=== PATIENT | female | born 1940 | race African-American/Black ===

== ENCOUNTER 2017-10-19 09:58 | Inpatient (IN) | payer MEDICARE, MEDICAID ==
[~2017-10-19] VITALS: Ht 160 cm; Wt 70.8 kg
[~2017-10-19 09:58] MED LIST: ASPI-1159 PO; CARV3.1242 PO; FAMO20TA8 PO; FERR-63 PO; FOLI-43 PO; FURO20TA4 PO; LEVE500T19 PO; LISI2.5T47 PO; MAGN400C PO; MULT-1146 PO
[2017-10-19] MEDS ORDERED: METHYLPREDNISOLONE SOD SUCC 125 MG/2 ML VIAL IV STA (10:35)
[2017-10-19] MEDS ORDERED: IPRATROPIUM BROMIDE (0.02%) 0.5MG/2.5ML NEB HHN STA (10:35)
[2017-10-19] MEDS ORDERED: ALBUTEROL (0.083%) 2.5MG/3ML NEB HHN STA (10:35)
[2017-10-19] MEDS ORDERED: CLOPIDOGREL 75MG TABLET PO ONE (10:45)
[2017-10-19] MEDS ORDERED: DILTIAZEM HCL 5MG/ML 5ML VIAL IV ONE (10:45)
[2017-10-19 11:31] LABS: INR 1.1; PARTIAL THROMBOPLASTIN TIME 23.8 sec (23.4-31.0); PROTHROMBIN TIME 11.4 sec (9.4-11.6)
[2017-10-19 11:33] LABS: HEMATOCRIT. 34.9 % (36.0-48.0); HEMOGLOBIN. 11.2 g/dL (12.0-16.0); MEAN CORPUSCULAR HEMOGLOBIN 30.1 pg (28.0-32.0); MEAN CORPUSCULAR VOLUME 93.9 fL (81.0-99.0); MEAN PLATELET VOLUME 7.6 fl (7.4-10.4); PLATELET 197 x1000/uL (130-400); RED BLOOD CELL COUNT 3.71 mill/uL (4.2-5.4); RED CELL DISTRIBUTION WIDTH 14.2 % (11.6-14.6)
[2017-10-19 11:39] LABS: CARBON DIOXIDE 25 mEq/L (21-32); CHLORIDE 111 mEq/L (98-107); TROPONIN I 0.02 ng/mL (0.00-0.04)
[2017-10-19 12:17] LABS: PLATELET ESTIMATE NORMAL
[2017-10-19] MEDS ORDERED: FUROSEMIDE 40MG/4ML VIAL IVP ONE (12:45)
[2017-10-19] MEDS ORDERED: NITROGLYCERIN 0.4MG TABLET SL SL PRN (15:00)
[2017-10-19] MEDS ORDERED: ACETAMINOPHEN 500MG TABLET PO PRN (15:00)
[2017-10-19 17:59] VITALS: BP 140/85
[2017-10-19 20:00] VITALS: BP 130/81
[2017-10-19] MEDS: LEVETIRACETAM 500MG TABLET PO SCH (20:33)
[2017-10-19] MEDS: CARVEDILOL 3.125 MG TABLET PO SCH (20:34)
[2017-10-19] MEDS: FAMOTIDINE 20MG TABLET PO SCH (20:34)
[2017-10-20] VITALS (8 sets, daily range): BP systolic 94–170; BP diastolic 52–110
[2017-10-20 07:05] LABS: HEMATOCRIT. 32.2 % (36.0-48.0); HEMOGLOBIN. 10.5 g/dL (12.0-16.0); MEAN CORPUSCULAR HEMOGLOBIN 30.5 pg (28.0-32.0); MEAN CORPUSCULAR VOLUME 92.9 fL (81.0-99.0); MEAN PLATELET VOLUME 7.8 fl (7.4-10.4); PLATELET 172 x1000/uL (130-400); RED BLOOD CELL COUNT 3.46 mill/uL (4.2-5.4); RED CELL DISTRIBUTION WIDTH 14.1 % (11.6-14.6)
[2017-10-20] MEDS: CARVEDILOL 3.125 MG TABLET PO SCH (08:44)
[2017-10-20] MEDS: LEVETIRACETAM 500MG TABLET PO SCH ×2 (08:45→22:21)
[2017-10-20] MEDS: FUROSEMIDE 40MG/4ML VIAL IVP SCH (08:45)
[2017-10-20] MEDS ORDERED: LISINOPRIL 2.5MG TABLET PO SCH (09:00)
[2017-10-20] MEDS ORDERED: ASPIRIN 325MG EC TABLET PO SCH (09:00)
[2017-10-20] MEDS ORDERED: CLOPIDOGREL 75MG TABLET PO SCH (09:00)
[2017-10-20 10:15] LABS: PLATELET ESTIMATE NORMAL
[2017-10-20] MEDS: SILDENAFIL CITRATE 20MG TABLET PO SCH ×2 (18:34→22:00)
[2017-10-20] MEDS: DIGOXIN 125MCG TABLET PO SCH (18:34)
[2017-10-20] MEDS: CARVEDILOL 6.25 MG TABLET PO SCH (21:00)
[2017-10-20] MEDS: FAMOTIDINE 20MG TABLET PO SCH (22:21)
[2017-10-21] VITALS: BP 101/69
[2017-10-21 04:00] VITALS: BP 111/59
[2017-10-21] MEDS: SILDENAFIL CITRATE 20MG TABLET PO SCH ×3 (05:57→22:11)
[2017-10-21 07:12] LABS: BASOPHILS % 0.1 % (0.0-2.0); EOSINOPHILS % 0.9 % (0.0-5.0); HEMATOCRIT. 30.8 % (36.0-48.0); MEAN CORPUSCULAR VOLUME 92.1 fL (81.0-99.0); MEAN PLATELET VOLUME 7.8 fl (7.4-10.4); MONOCYTES % 6.9 % (2.0-8.0); NEUTROPHILS % 84.1 % (40.0-76.0); PLATELET 163 x1000/uL (130-400); RED BLOOD CELL COUNT 3.34 mill/uL (4.2-5.4)
[2017-10-21 08:00] VITALS: BP 132/69
[2017-10-21] MEDS: CARVEDILOL 6.25 MG TABLET PO SCH ×2 (09:00→22:11)
[2017-10-21] MEDS: FUROSEMIDE 40MG/4ML VIAL IVP SCH ×2 (09:00→09:16)
[2017-10-21] MEDS: LEVETIRACETAM 500MG TABLET PO SCH ×2 (09:16→22:10)
[2017-10-21 12:00] VITALS: BP 147/85
[2017-10-21] MEDS ORDERED: SODIUM BICARBONATE 4% (2.4MEQ) 5ML VIAL IV ONE (13:52)
[2017-10-21] MEDS ORDERED: LIDOCAINE HCL 1% 20ML VIAL (Pyxis) INJ ONE (13:52)
[2017-10-21 16:00] VITALS: BP 123/62
[2017-10-21] MEDS: DIGOXIN 125MCG TABLET PO SCH (17:43)
[2017-10-21 20:00] VITALS: BP 130/72
[2017-10-21] MEDS: FAMOTIDINE 20MG TABLET PO SCH (22:10)
[2017-10-22] VITALS: BP 147/74
[2017-10-22 04:00] VITALS: BP 105/78
[2017-10-22] MEDS: SILDENAFIL CITRATE 20MG TABLET PO SCH ×2 (05:55→14:17)
[2017-10-22 07:17] LABS: BASOPHILS % 0.3 % (0.0-2.0); EOSINOPHILS % 1.2 % (0.0-5.0); HEMOGLOBIN. 10.3 g/dL (12.0-16.0); LYMPHOCYTES % 12.5 % (20.0-50.0); MEAN CORPUSCULAR HEMOGLOBIN 30.1 pg (28.0-32.0); MEAN PLATELET VOLUME 7.6 fl (7.4-10.4); MONOCYTES % 6.3 % (2.0-8.0); NEUTROPHILS % 79.7 % (40.0-76.0); PLATELET 175 x1000/uL (130-400); RED BLOOD CELL COUNT 3.44 mill/uL (4.2-5.4); RED CELL DISTRIBUTION WIDTH 14.4 % (11.6-14.6)
[2017-10-22 08:00] VITALS: BP 149/95
[2017-10-22 08:56] LABS: TROPONIN I 0.03 ng/mL (0.00-0.04)
[2017-10-22] MEDS: LEVETIRACETAM 500MG TABLET PO SCH (09:33)
[2017-10-22] MEDS: FUROSEMIDE 40MG/4ML VIAL IVP SCH (09:33)
[2017-10-22] MEDS: CARVEDILOL 6.25 MG TABLET PO SCH (09:34)
[2017-10-22 12:00] VITALS: BP 142/85
[2017-10-22 16:00] VITALS: BP_SYST 135; BP_SYST 149; BP_DIAS 76; BP_DIAS 95
[2017-10-22] MEDS: DIGOXIN 125MCG TABLET PO SCH (18:00)
[2017-10-22 20:00] VITALS: BP 133/95
[2017-10-22] MEDS ORDERED: CARVEDILOL 3.125 MG TABLET PO SCH (21:00)
[2017-10-22] MEDS ORDERED: FUROSEMIDE 40MG TABLET PO SCH (21:00)
== END 2017-10-22 20:30 | DRG 291 ==
LOC: ER 10:08 → ENRESERV 13:50 → SUPCPDRO 14:46 → 8WST 15:47
PROVIDERS: ADMIT Internal Medicine; ATTEND Internal Medicine
PROC: 02HV33Z Insertion of Infusion Device into Superior Vena Cava, Percutaneous Approach (ICD-10-PCS; principal; 2017-10-21)
PROC: B5181ZA Fluoroscopy of Superior Vena Cava using Low Osmolar Contrast, Guidance (ICD-10-PCS; 2017-10-21)
PROC: B548ZZA Ultrasonography of Superior Vena Cava, Guidance (ICD-10-PCS; 2017-10-21)
DX: I13.0 Hypertensive heart and chronic kidney disease with heart failure and stage 1 through stage 4 chronic kidney disease, or unspecified chronic kidney disease (principal); I50.23 Acute on chronic systolic (congestive) heart failure; D69.6 Thrombocytopenia, unspecified; I27.20 Pulmonary hypertension, unspecified; I25.5 Ischemic cardiomyopathy; I48.2 Chronic atrial fibrillation; F03.90 Unspecified dementia, unspecified severity, without behavioral disturbance, psychotic disturbance, mood disturbance, and anxiety; D64.9 Anemia, unspecified; G40.909 Epilepsy, unspecified, not intractable, without status epilepticus; I25.10 Atherosclerotic heart disease of native coronary artery without angina pectoris; M19.90 Unspecified osteoarthritis, unspecified site; M79.89 Other specified soft tissue disorders; R00.1 Bradycardia, unspecified; N18.9 Chronic kidney disease, unspecified; Z79.899 Other long term (current) drug therapy; Z88.6 Allergy status to analgesic agent; Z88.5 Allergy status to narcotic agent; Z88.0 Allergy status to penicillin; Z90.11 Acquired absence of right breast and nipple; Z87.19 Personal history of other diseases of the digestive system; Z85.3 Personal history of malignant neoplasm of breast; Z86.73 Personal history of transient ischemic attack (TIA), and cerebral infarction without residual deficits
CPT/HCPCS: 36415; 36569; 71010; 76937; 77001; 80048; 80053; 80061; 80162; 83605; 83690; 83735; 83880; 84443; 84484; 85025; 85610; 85730; 87040; 93005; 93306; 96374; 96375; 99285; C1725; C1893; J1940; J2930; J3490